=== PATIENT | female | born 1945 | race Caucasian/White ===

== ENCOUNTER 2017-03-04 13:06 | Emergency (ER) | payer OTHER, MEDICAID ==
[~2017-03-04 13:06] MED LIST: ALPR0.25 PO; GABA400C5 PO; HYDR-3133 PO; MELO7.5T27 PO; TRAM50TA PO
[2017-03-04 13:09] VITALS: BP 166/80; PULSE 85; RESP 22; TEMP 98; O2SAT 95
[2017-03-04 13:40] VITALS: O2SAT 98
[2017-03-04] MEDS ORDERED: PROPARACAINE HCL 0.5% OPHT SOLN 15 ML BTL LEFT EYE ONE (13:45)
[2017-03-04] MEDS ORDERED: ONDANSETRON HCL 4 MG/2 ML VIAL IV PUSH ONE (13:45)
[2017-03-04] MEDS ORDERED: MORPHINE SULFATE 4 MG/ML INJ IV PUSH ONE (13:45)
[2017-03-04 14:00] VITALS: BP 128/73; PULSE 64; RESP 16; O2SAT 98
[2017-03-04 14:10] LABS: AUTOMATED NEUTROPHIL # 5.4 TH/MM3 (1.8-7.7); BASOPHIL % 0.3 % (0.0-2.0); EOSINOPHIL % 0.4 % (0.0-4.0); HEMATOCRIT 43.9 % (35.0-46.0); HEMO FLAGS DIFF FINAL; LYMPH % 17.8 % (9.0-44.0); LYMPHOCYTE # 1.4 TH/MM3 (1.0-4.8); MEAN CELL VOLUME 90.7 FL (80.0-100.0); MEAN CORPUSCULAR HEMOGLOBIN 30.5 PG (27.0-34.0); MEAN CORPUSCULAR HGB CONC 33.6 % (32.0-36.0); MONO % 11.6 % (0.0-8.0); NEUT % 69.9 % (16.0-70.0); PLATELET COUNT 169 TH/MM3 (150-450); RED BLOOD COUNT 4.84 MIL/MM3 (4.00-5.30); RED CELL DISTRIBUTION WIDTH 14.6 % (11.6-17.2); WHITE BLOOD COUNT 7.8 TH/MM3 (4.0-11.0)
--- NOTE | 2017-03-04 14:14 | PD ---
HPI Chief Complaint: Headache Time Seen by Provider: 13:20 Travel History International Travel<30 days: No Contact w/Intl Traveler<30days: No Traveled to known affect area: No History of Present Illness HPI 71-year-old female that presents to the ED for evaluation of headache on the left side with eye pain. Per patient she's had this since yesterday. 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 She apparently had an infection that causes her to have this pain. She states that she does have a history of neck issues for which he follows with Dr. [place] has been taking tramadol with minimal relief. She follow with Dr. Hassan today who recommended that she comes here to get evaluated. She denies any blurry vision or double vision. No chest pain or shortness of breath. No numbness, tilling, weakness. Per patient the pain is constant on the left side of the face behind the eye. She denies any loss of patient states that yesterday her vision was "funny". She denies loss of vision but states that she couldn't really move her eyes. She doesn't have this anymore. She states that the pain is 8 out of 10. Mainly on the left side. Allergies to sulfa and cephalexin. No urinary or bowel movement issues. No abdominal pain. No chest pain. Denies taking any blood thinners. PFSH Past Medical History Arthritis: Yes Autoimmune Disease: No Bipolar Disorder: Yes Anxiety: Yes Depression: Yes Cancer: Yes (BREAST AND BLADDER) Cardiovascular Problems: Yes Diabetes: No Diminished Hearing: Yes (right ear deafness) Glaucoma: No Hepatitis: No Hiatal Hernia: No Hypertension: No Respiratory: Yes (COPD) Thyroid Disease: No Ectopic : Yes Past Surgical History Genitourinary Surgery: Yes (BLADDER SURGERY NODULE REMOVAL) Gynecologic Surgery: Yes (left breast lumpectomy due to cancer pt received chemo and radiation) Mastectomy: Yes (left) Oral Surgery: Yes (tonsillectomy) Pacemaker: No Tonsillectomy: Yes Other Surgery: Yes (LEFT BREAST LUMPECTOMY; SURGERY FOR ECTOPIC) Social History Alcohol Use: No Tobacco Use: Yes (1 PPD) Substance Use: Yes (PAST ETOH ABUSE) Allergies-Medications (Allergen,Severity, Reaction): Coded Allergies: Sulfa (Sulfonamide Antibiotics) (Verified Allergy, Severe, THROAT SWELLING , 03/04/17) cephalexin (Verified Allergy, Severe, THROAT SWELLING, 03/04/17) Reported Meds & Prescriptions Reported Meds & Active Scripts Active Lortab (Hydrocodone-Acetaminophen) 5-325 Mg Tab 1 Tab PO Q6H PRN Reported Tramadol (Tramadol HCl) 50 Mg Tab 50 Mg PO DAILY PRN Meloxicam 7.5 Mg Tab 7.5 Mg PO DAILY Gabapentin 400 Mg Cap 400 Cap PO QID Alprazolam 0.25 Mg Tab 0.25 Mg PO Q12HR PRN Review of Systems Except as stated in HPI: all other systems reviewed are Neg Physical Exam Narrative GENERAL: SKIN: Warm and dry. HEAD: Atraumatic. Normocephalic. EYES: Pupils equal and round 4 mm reactive to light and accommodation. No scleral icterus. No injection or drainage. EOM intact bilaterally. Peripheral vision intact. IOP is aware 14, 16, 15 on the left eye. Fluorescein stain revealed no sign of dendritic lesions or masses or operations. ENT: No nasal bleeding or discharge. Mucous membranes pink and moist. Tongue is midline. No uvula deviation. No obvious sinus tenderness. NECK: Trachea midline. No JVD. CARDIOVASCULAR: Regular rate and rhythm. No murmurs, S3, S4. RESPIRATORY: No accessory muscle use. Clear to auscultation. Breath sounds equal bilaterally. GASTROINTESTINAL: Abdomen soft, non-tender, nondistended. Hepatic and splenic margins not palpable. MUSCULOSKELETAL: Extremities without clubbing, cyanosis, or edema. No obvious deformities. Full range of motion of the upper and lower extremities bilaterally. 2+ pulses bilaterally. NEUROLOGICAL: Awake and alert. No obvious cranial nerve deficits. Motor grossly within normal limits. Five out of 5 muscle strength in the arms and legs. Normal speech. PSYCHIATRIC: Appropriate mood and affect; insight and judgment normal. Data Data Last Documented VS Vital Signs Date Time Temp Pulse Resp B/P (MAP) Pulse Ox O2 Delivery O2 Flow Rate FiO2 03/04/17 14:00 64 16 128/73 (91) 98 Room Air 03/04/17 13:09 98.0 Orders Orders Complete Blood Count With Diff (03/04/17 13:33) Basic Metabolic Panel (Bmp) (03/04/17 13:33) Prothrombin Time / Inr (Pt) (03/04/17 13:33) Act Partial Throm Time (Ptt) (03/04/17 13:33) Westergren Sedimentation Rate (03/04/17 13:33) Magnesium (Mg) (03/04/17 13:33) Thyroid Stimulating Hormone (03/04/17 13:33) Ct Brain W/O Iv Contrast(Rout) (03/04/17 13:33) Iv Access Insert/Monitor (03/04/17 13:33) Ecg Monitoring (03/04/17 13:33) Oximetry (03/04/17 13:33) Ondansetron Inj (Zofran Inj) (03/04/17 13:45) Morphine Inj (Morphine Inj) (03/04/17 13:45) Proparacaine 0.5% Opth Soln (Alcaine 0.5 (03/04/17 13:45) Ct Cerv Spine W/O Contrast (03/04/17 ) Ed Discharge Order (03/04/17 15:14) Labs Laboratory Tests Test 03/04/17 14:00 White Blood Count 7.8 TH/MM3 Red Blood Count 4.84 MIL/MM3 Hemoglobin 14.8 GM/DL Hematocrit 43.9 % Mean Corpuscular Volume 90.7 FL Mean Corpuscular Hemoglobin 30.5 PG Mean Corpuscular Hemoglobin Concent 33.6 % Red Cell Distribution Width 14.6 % Platelet Count 169 TH/MM3 Mean Platelet Volume 8.4 FL Neutrophils (%) (Auto) 69.9 % Lymphocytes (%) (Auto) 17.8 % Monocytes (%) (Auto) 11.6 % Eosinophils (%) (Auto) 0.4 % Basophils (%) (Auto) 0.3 % Neutrophils # (Auto) 5.4 TH/MM3 Lymphocytes # (Auto) 1.4 TH/MM3 Monocytes # (Auto) 0.9 TH/MM3 Eosinophils # (Auto) 0.0 TH/MM3 Basophils # (Auto) 0.0 TH/MM3 CBC Comment DIFF FINAL Differential Comment Erythrocyte Sedimentation Rate 1 mm/hr Prothrombin Time 10.9 SEC Prothromb Time International Ratio 1.0 RATIO Activated Partial Thromboplast Time 29.5 SEC Blood Urea Nitrogen 9 MG/DL Creatinine 0.70 MG/DL Random Glucose 125 MG/DL Calcium Level 8.7 MG/DL Magnesium Level 2.1 MG/DL Sodium Level 137 MEQ/L Potassium Level 3.5 MEQ/L Chloride Level 102 MEQ/L Carbon Dioxide Level 29.0 MEQ/L Anion Gap 6 MEQ/L Estimat Glomerular Filtration Rate 82 ML/MIN Thyroid Stimulating Hormone 3rd Gen 1.560 uIU/ML MDM Medical Decision Making Medical Screen Exam Complete: Yes Emergency Medical Condition: Yes Medical Record Reviewed: Yes Interpretation(s) CBC Diagram 03/04/17 14:00 BMP Diagram 03/04/17 14:00 Calcium Level 8.7, Magnesium Level 2.1 ESR WNL Last Impressions Head CT 03/04/17 1333 Signed Impressions: Service Date/Time: Saturday, March 04, 2017 14:34 - CONCLUSION: 1. No abnormality is identified to explain the clinical symptoms. There is no acute finding present. 2. Chronic findings include mild generalized atrophy and presumed old lacunae in the left basal ganglia. Gilson Suarez MD Cervical Spine CT 03/04/17 0000 Signed Impressions: Service Date/Time: Saturday, March 04, 2017 14:34 - CONCLUSION: 1. No acute cervical spine abnormality is identified. 2. There is as moderate to severe multilevel degenerative disc disease with osseous fusion between the C3 and C4 levels. No significant spinal canal stenosis is present. There are areas of mild to moderate neural foraminal narrowing. Gilson Suarez MD Differential Diagnosis Cephalgia versus headache versus neuralgia versus glaucoma versus bleed versus sinusitis versus acute on chronic pain versus neck pain versus temporal arteritis Narrative Course 71-year-old female that presents to the ED for evaluation of left-sided head pain. Patient was properly examined and was found to have signs and symptoms of unclear if this time. Labs and imaging were ordered. Patient was given pain medication IV. Physical exam was reassuring. Labs and imaging were essentially negative except for back neck. Patient states pain appears to be more radiculopathy from the neck. She had improvement of pain with pain medication.. No sign of temporal arteritis or stroke. No neural deficits. At this time recommendations for outpatient follow-up with PCP. She was given a short prescription for Lortab for pain. Told to use instead of the tramadol. See ED worsening symptoms. Case was discussed in my attending Dr. Jay who was made aware of all findings and agrees with plan. Diagnosis Primary Impression: Cephalgia Qualified Codes: R51 - Headache Additional Impression: Cervical radiculopathy Patient Instructions: General Instructions, Narcotic given in the ED Additional Instructions: Take medications as prescribed. Do not use tramadol if you are going to take the Lortab. Follow-up with PCP this week. See ED for any worsening symptoms. Do not drink or drive while taking pain medication. Apply ice or heat as needed for pain Med/Other Pt SpecificInfo: Prescription(s) given, Med Stopped Scripts Hydrocodone-Acetaminophen (Lortab) 5-325 Mg Tab 1 TAB PO Q6H Y for PAIN, #10 TAB 0 Refills Prov: Naveed Jay MD 03/04/17 Disposition: 01 DISCHARGE HOME Condition: Fahad Reyna Mar 04, 2017 14:14
[2017-03-04 14:21] LABS: APTT (PATIENT) 29.5 SEC (24.3-30.1); PROTHROMBIN TIME - PATIENT 10.9 SEC (9.8-11.6)
[2017-03-04 14:25] LABS: MAGNESIUM 2.1 MG/DL (1.5-2.5); POTASSIUM 3.5 MEQ/L (3.5-5.1)
--- NOTE | 2017-03-04 14:51 | RADRPT ---
EXAM DATE/TIME: 03/04/2017 14:34 [facility] COMPARISON: No previous studies available for comparison. INDICATIONS : Left eye pain since yesterday RADIATION DOSE: 28.83 CTDIvol (mGy) MEDICAL HISTORY : Carcinoma, breast. Chronic obstructive pulmonary disease. Carcinoma, bladder. SURGICAL HISTORY : Mastectomy, bilateral. ENCOUNTER: Initial ACUITY: 2 days PAIN SCALE: 9/10 LOCATION: Left cranial TECHNIQUE: Multiple contiguous axial images were obtained of the head. Using automated exposure control and adj ustment of the mA and/or kV according to patient size, radiation dose was kept as low as reasonably a chievable to obtain optimal diagnostic quality images. DICOM format image data is available electro nically for review and comparison. FINDINGS: CEREBRUM: There is generalized atrophy within the range of expected given the patient's age. Ventricles are nor mal in size. Well-defined ovoid low-density structure in the left basal ganglia measures 8 mm. No mi dline shift, mass lesion, hemorrhage or acute infarction. No extra-axial fluid collections are seen. POSTERIOR FOSSA: The cerebellum and brainstem are intact. The 4th ventricle is midline. The cerebellopontine angle i s unremarkable. EXTRACRANIAL: Visualized sinuses are clear. Globes demonstrate no abnormality. SKULL: The calvaria is intact. No evidence of skull fracture. CONCLUSION: 1. No abnormality is identified to explain the clinical symptoms. There is no acute finding present. 2. Chronic findings include mild generalized atrophy and presumed old lacunae in the left basal gangl ia. Gilson Suarez MD on March 04, 2017 at 14:47 Board Certified Radiologist. This report was verified electronically.
--- NOTE | 2017-03-04 15:05 | RADRPT ---
EXAM DATE/TIME: 03/04/2017 14:34 [facility] COMPARISON: No previous studies available for comparison. INDICATIONS : Left eye pain with blurred vision RADIATION DOSE: 18.78 CTDIvol (mGy) MEDICAL HISTORY : Chronic obstructive pulmonary disease. Carcinoma, breast. Carcinoma, bladder. SURGICAL HISTORY : Mastectomy, bilateral. ENCOUNTER: Initial ACUITY: 2 days PAIN SCALE: 0/10 LOCATION: neck TECHNIQUE: Volumetric scanning of the cervical spine was performed. Multiplanar reconstructions in the sagittal, coronal and oblique axial planes were performed. Using automated exposure control and adjustment o f the mA and/or kV according to patient size, radiation dose was kept as low as reasonably achievable to obtain optimal diagnostic quality images. DICOM format image data is available electronically f or review and comparison. FINDINGS: VERTEBRAE: Normal vertebral body height. There is osseous fusion between the C3 and C4 vertebral bodies and post erior elements. No fracture is identified. ALIGNMENT: There is 3 mm of anterolisthesis of C2 on C3. The craniocervical junction and C1-C2 level demonstrate no acute finding. C2-C3: There is grade one anterolisthesis at this level. Diffuse posterior disc osteophyte complex is presen t with small bilateral uncovertebral osteophytes. There is bilateral facet arthrosis. No spinal canal stenosis is present. There is mild neural foraminal narrowing bilaterally. C3-C4: Osseous fusion is present at this level. There is no disc herniation, canal stenosis, or neural hamilton inal stenosis identified. C4-C5: Decreased disc height with endplate osteophytes and posterior disc osteophyte complex and small uncov ertebral osteophytes. There is no spinal canal stenosis. Mild narrowing is present at the right neura l foramen. C5-C6: Severe decreased disc height with endplate sclerosis and osteophytes and diffuse posterior disc osteo phyte complex and small uncovertebral osteophytes. No spinal canal stenosis is present. There is mild neural foraminal narrowing bilaterally. C6-C7: Severe decreased disc height with endplate osteophytes anteriorly and small diffuse posterior disc os teophyte complex with uncovertebral osteophytes. No canal stenosis is identified. There is moderate r ight neural foraminal stenosis. C7-T1: There is mild decreased disc height with left facet arthrosis. No disc herniation, canal stenosis, or neural foraminal narrowing is present. There is decreased disc height at T1-T2 and T2-T3. At T2-T3 there is 2 mm of anterolisthesis and face t arthrosis. Lung apices demonstrate centrilobular emphysema. CONCLUSION: 1. No acute cervical spine abnormality is identified. 2. There is as moderate to severe multilevel degenerative disc disease with osseous fusion between th e C3 and C4 levels. No significant spinal canal stenosis is present. There are areas of mild to moder ate neural foraminal narrowing. Gilson Suarez MD on March 04, 2017 at 14:58 Board Certified Radiologist. This report was verified electronically.
[2017-03-04] MEDS ORDERED: HYDR-3533 PO (15:14)
[2017-03-04 15:51] VITALS: BP 122/74
== END 2017-03-04 15:54 | disposition home or self-care (01) ==
LOC: NEPC 13:06
DX: R51 Headache (principal); M54.12 Radiculopathy, cervical region; M50.31 Other cervical disc degeneration, high cervical region; M19.90 Unspecified osteoarthritis, unspecified site; F31.9 Bipolar disorder, unspecified; F41.9 Anxiety disorder, unspecified; J44.9 Chronic obstructive pulmonary disease, unspecified; F17.200 Nicotine dependence, unspecified, uncomplicated; Z79.899 Other long term (current) drug therapy
CPT/HCPCS: 70450; 72125; 80048; 83735; 84443; 85025; 85610; 85652; 85730; 96374; 96375; 99285; J2270; J2405

== ENCOUNTER 2017-05-15 10:23 | Inpatient (IN) | payer OTHER, MEDICAID, MEDICARE ==
[2017-05-15] MEDS: methylPREDNISolone SOD SUCC 125 MG/2 ML VIAL IV PUSH ×3 (10:45→21:16)
[2017-05-15] MEDS: RESP: ALBUTEROL 2.5 MG/IPRATROPIUM 0.5 MG NEB (SCH) INH ×3 (10:52→10:53)
[2017-05-15] MEDS: SODIUM CHLOR 0.9% 1000 ML INJ 1,000 ML IV (11:17)
[2017-05-15] MEDS: SODIUM CHLORIDE 0.9% FLUSH 10 ML FLUSH IVF (11:17)
[2017-05-15 11:30] LABS: AUTOMATED NEUTROPHIL # 5.6 TH/MM3 (1.8-7.7); BASOPHIL % 0.3 % (0.0-2.0); EOSINOPHIL # 0.1 TH/MM3 (0-0.4); EOSINOPHIL % 0.6 % (0.0-4.0); HEMATOCRIT 44.4 % (35.0-46.0); HEMO FLAGS DIFF FINAL; HEMOGLOBIN 14.7 GM/DL (11.6-15.3); LYMPH % 20.4 % (9.0-44.0); LYMPHOCYTE # 1.8 TH/MM3 (1.0-4.8); MEAN CORPUSCULAR HEMOGLOBIN 30.2 PG (27.0-34.0); MEAN CORPUSCULAR HGB CONC 33.2 % (32.0-36.0); MEAN PLATELET VOLUME 8.5 FL (7.0-11.0); MONO % 14.8 % (0.0-8.0); MONOCYTE # 1.3 TH/MM3 (0-0.9); NEUT % 63.9 % (16.0-70.0); PLATELET COUNT 204 TH/MM3 (150-450); RED BLOOD COUNT 4.88 MIL/MM3 (4.00-5.30); RED CELL DISTRIBUTION WIDTH 14.5 % (11.6-17.2); WHITE BLOOD COUNT 8.8 TH/MM3 (4.0-11.0)
[2017-05-15 11:57] LABS: ALBUMIN 3.4 GM/DL (3.4-5.0); ALT (GPT) 25 U/L (10-53); ANION GAP 5 MEQ/L (5-15); AST (GOT) 22 U/L (15-37); BICARBONATE 34.6 MEQ/L (21.0-32.0); BLOOD UREA NITROGEN 7 MG/DL (7-18); CALCIUM 8.7 MG/DL (8.5-10.1); CHLORIDE 101 MEQ/L (98-107); CREATININE 0.67 MG/DL (0.50-1.00); GLOMERULAR FILTRATION RATE 87 ML/MIN (>89); GLUCOSE,RANDOM 118 MG/DL (74-106); MAGNESIUM 2.3 MG/DL (1.5-2.5); POTASSIUM 3.4 MEQ/L (3.5-5.1); SODIUM (NA) 141 MEQ/L (136-145)
[2017-05-15 11:58] LABS: ALKALINE PHOSPHATASE 95 U/L (45-117); TOTAL BILIRUBIN ADULT 0.4 MG/DL (0.2-1.0); TOTAL PROTEIN 6.8 GM/DL (6.4-8.2)
[2017-05-15] MEDS ORDERED: RESP: ALBUTEROL 2.5 MG/3 ML NEB (PRN) INH (13:30)
[2017-05-15 13:54] LABS: BLOOD GAS BASE EXCESS 2.3 mmol/L (-2-2); BLOOD GAS CARBOXYHEMOGLOBIN 2.4 % (0-4); BLOOD GAS HCO3 27 mmol/L (22-26); BLOOD GAS METHEMOGLOBIN 0.7 % (0-2); BLOOD GAS O2 HGB SATURATION 87 % (90-100); BLOOD GAS OXYGEN CONTENT 16.9 Vol % (12.0-20.0); BLOOD GAS PCO2 48 mmHg (38-42); BLOOD GAS PO2 57 mmHG (61-120); BLOOD GAS TOTAL HGB 13.8 G/DL (12.0-16.0); TEMP CORR TO 98.6
[2017-05-15 13:55] LABS: CRITICAL VALUE YES; DRAW SITE RT RADIAL; LITER FLOW 2 L/M; NUMBER OF ARTERIAL PUNCTURES 1; OXYGEN DEVICE NASAL CANNULA; STAT YES
[2017-05-15] MEDS: POTASSIUM CHLORIDE 20 MEQ CONTROLLED RELEASE TAB PO (16:45)
[2017-05-15] MEDS: RESP: ALBUTEROL 2.5 MG/IPRATROPIUM 0.5 MG NEB (SCH) NEB ×2 (16:52→21:30)
[2017-05-15] MEDS ORDERED: AZITHROMYCIN INJ 500 MG in SODIUM CHLOR 0.9% 250 ML INJ 250 ML IV (18:30)
[2017-05-15] MEDS: AZITHROMYCIN 250 MG TAB PO (19:49)
[2017-05-15] MEDS: ENOXAPARIN SODIUM 40 MG/0.4 ML SYRINGE SQ (19:52)
[2017-05-15] MEDS: BUDESONIDE-FORMOTEROL 160/4.5 MCG INHALER INH (21:00)
[2017-05-15] MEDS: SODIUM CHLORIDE 0.9% FLUSH 10 ML FLUSH IV FLUSH (21:16)
[2017-05-15] MEDS: IOHEXOL 350 MG/ML 10 ML VIAL (for RAD DIAG) IVCONTRAST (22:20)
[2017-05-16] MEDS: SODIUM CHLORIDE 0.9% FLUSH 10 ML FLUSH IV FLUSH ×3 (03:26→20:32)
[2017-05-16] MEDS: methylPREDNISolone SOD SUCC 125 MG/2 ML VIAL IV PUSH ×3 (03:26→16:03)
[2017-05-16] MEDS: RESP: ALBUTEROL 2.5 MG/IPRATROPIUM 0.5 MG NEB (SCH) NEB ×3 (07:37→19:39)
[2017-05-16] MEDS: NICOTINE 14 MG/24 HR PATCH T-DERMAL (08:41)
[2017-05-16] MEDS: BUDESONIDE-FORMOTEROL 160/4.5 MCG INHALER INH ×2 (09:30→20:32)
[2017-05-16] MEDS: PNEUMOCOCCAL POLYVALENT INJ 25 MCG/0.5 ML SYR IM (16:05)
[2017-05-16] MEDS: INFLUENZA VIRUS VACCINE (QUADRIVALENT) 0.5 ML SYR IM (16:07)
[2017-05-16] MEDS: AZITHROMYCIN 250 MG TAB PO (18:25)
[2017-05-16] MEDS: ENOXAPARIN SODIUM 40 MG/0.4 ML SYRINGE SQ (18:25)
[2017-05-16] MEDS: methylPREDNISolone SOD SUCC 40 MG/1 ML VIAL IV PUSH (20:32)
[2017-05-16] MEDS: REMOVE OLD NICODERM (NICOTINE) PATCH T-DERMAL (20:33)
[2017-05-17] MEDS ORDERED: ACETAMINOPHEN 325 MG TAB PO
[2017-05-17] MEDS: IBUPROFEN 400 MG TAB PO (01:46)
[2017-05-17] MEDS: methylPREDNISolone SOD SUCC 40 MG/1 ML VIAL IV PUSH ×3 (01:49→19:47)
[2017-05-17] MEDS: RESP: ALBUTEROL 2.5 MG/IPRATROPIUM 0.5 MG NEB (SCH) NEB ×3 (08:42→20:11)
[2017-05-17] MEDS: NICOTINE 14 MG/24 HR PATCH T-DERMAL (09:33)
[2017-05-17] MEDS: BUDESONIDE-FORMOTEROL 160/4.5 MCG INHALER INH ×2 (09:34→19:47)
[2017-05-17] MEDS: SODIUM CHLORIDE 0.9% FLUSH 10 ML FLUSH IV FLUSH ×2 (09:34→19:47)
[2017-05-17 10:15] LABS: ANION GAP 7 MEQ/L (5-15); BLOOD UREA NITROGEN 16 MG/DL (7-18); CALCIUM 9.3 MG/DL (8.5-10.1); CHLORIDE 102 MEQ/L (98-107); CREATININE 0.76 MG/DL (0.50-1.00); GLOMERULAR FILTRATION RATE 75 ML/MIN (>89); GLUCOSE,RANDOM 104 MG/DL (74-106); POTASSIUM 4.3 MEQ/L (3.5-5.1); SODIUM (NA) 141 MEQ/L (136-145)
[2017-05-17] MEDS: LORazepam 2 MG/ML VIAL IV PUSH (14:40)
[2017-05-17] MEDS: RESP: ALBUTEROL 2.5 MG/IPRATROPIUM 0.5 MG NEB (PRN) NEB (16:15)
[2017-05-17] MEDS: ENOXAPARIN SODIUM 40 MG/0.4 ML SYRINGE SQ (18:30)
[2017-05-17] MEDS: AZITHROMYCIN 250 MG TAB PO (18:31)
[2017-05-17] MEDS: REMOVE OLD NICODERM (NICOTINE) PATCH T-DERMAL (19:50)
[2017-05-18] MEDS: NICOTINE 14 MG/24 HR PATCH T-DERMAL (09:11)
[2017-05-18] MEDS: BUDESONIDE-FORMOTEROL 160/4.5 MCG INHALER INH ×2 (09:11→20:54)
[2017-05-18] MEDS: methylPREDNISolone SOD SUCC 40 MG/1 ML VIAL IV PUSH (09:11)
[2017-05-18] MEDS: guaiFENesin E.R. 600 MG TAB PO ×2 (09:19→20:54)
[2017-05-18] MEDS: SODIUM CHLORIDE 0.9% FLUSH 10 ML FLUSH IV FLUSH ×2 (09:20→20:56)
[2017-05-18] MEDS: RESP: ALBUTEROL 2.5 MG/IPRATROPIUM 0.5 MG NEB (SCH) NEB ×2 (10:46→19:16)
[2017-05-18] MEDS: ENOXAPARIN SODIUM 40 MG/0.4 ML SYRINGE SQ (17:17)
[2017-05-18] MEDS: AZITHROMYCIN 250 MG TAB PO (17:17)
[2017-05-18] MEDS: predniSONE 20 MG TAB PO (20:54)
[2017-05-18] MEDS: REMOVE OLD NICODERM (NICOTINE) PATCH T-DERMAL (20:58)
[2017-05-19] MEDS: RESP: ALBUTEROL 2.5 MG/IPRATROPIUM 0.5 MG NEB (SCH) NEB ×2 (08:00→11:32)
[2017-05-19] MEDS: SODIUM CHLORIDE 0.9% FLUSH 10 ML FLUSH IV FLUSH ×2 (09:26→20:40)
[2017-05-19] MEDS: BUDESONIDE-FORMOTEROL 160/4.5 MCG INHALER INH ×2 (09:26→20:40)
[2017-05-19] MEDS: guaiFENesin E.R. 600 MG TAB PO ×2 (09:27→20:39)
[2017-05-19] MEDS: predniSONE 20 MG TAB PO ×2 (09:27→20:39)
[2017-05-19] MEDS: NICOTINE 14 MG/24 HR PATCH T-DERMAL (09:27)
[2017-05-19] MEDS: ENOXAPARIN SODIUM 40 MG/0.4 ML SYRINGE SQ (17:19)
[2017-05-19] MEDS: AZITHROMYCIN 250 MG TAB PO (17:19)
[2017-05-19] MEDS: REMOVE OLD NICODERM (NICOTINE) PATCH T-DERMAL (20:40)
[2017-05-20] MEDS: SODIUM CHLORIDE 0.9% FLUSH 10 ML FLUSH IV FLUSH ×2 (08:09→21:26)
[2017-05-20] MEDS: BUDESONIDE-FORMOTEROL 160/4.5 MCG INHALER INH ×2 (08:10→21:26)
[2017-05-20] MEDS: NICOTINE 14 MG/24 HR PATCH T-DERMAL (08:10)
[2017-05-20] MEDS: guaiFENesin E.R. 600 MG TAB PO ×2 (08:10→21:25)
[2017-05-20] MEDS: predniSONE 20 MG TAB PO (08:10)
[2017-05-20] MEDS: LORazepam 2 MG/ML VIAL IV PUSH (15:48)
[2017-05-20] MEDS: ENOXAPARIN SODIUM 40 MG/0.4 ML SYRINGE SQ (17:18)
[2017-05-20] MEDS: AZITHROMYCIN 250 MG TAB PO (17:18)
[2017-05-20] MEDS: predniSONE 10 MG TAB PO (21:25)
[2017-05-20] MEDS: REMOVE OLD NICODERM (NICOTINE) PATCH T-DERMAL (21:26)
[2017-05-21] MEDS: predniSONE 10 MG TAB PO (09:15)
[2017-05-21] MEDS: SODIUM CHLORIDE 0.9% FLUSH 10 ML FLUSH IV FLUSH (09:15)
[2017-05-21] MEDS: guaiFENesin E.R. 600 MG TAB PO (09:15)
[2017-05-21] MEDS: NICOTINE 14 MG/24 HR PATCH T-DERMAL (09:16)
[2017-05-21] MEDS: BUDESONIDE-FORMOTEROL 160/4.5 MCG INHALER INH (09:17)
== END 2017-05-21 12:34 | disposition home health service (06) | DRG 191 ==
LOC: NEPC 10:23 → N06A 05-16 22:15 → NEDA 13:29 → NEPGCP 15:50
PROC: 3E0F7GC Introduction of Other Therapeutic Substance into Respiratory Tract, Via Natural or Artificial Opening (ICD-10-PCS; principal; 2017-05-15)
DX: J44.1 Chronic obstructive pulmonary disease with (acute) exacerbation (principal); J96.11 Chronic respiratory failure with hypoxia; E87.6 Hypokalemia; F31.9 Bipolar disorder, unspecified; F17.210 Nicotine dependence, cigarettes, uncomplicated; Z85.3 Personal history of malignant neoplasm of breast; Z92.3 Personal history of irradiation; Z92.21 Personal history of antineoplastic chemotherapy; M19.90 Unspecified osteoarthritis, unspecified site; H91.93 Unspecified hearing loss, bilateral; Z85.51 Personal history of malignant neoplasm of bladder; F41.1 Generalized anxiety disorder; Z23 Encounter for immunization
CPT/HCPCS: 36600; 71045; 71260; 80048; 80053; 82805; 83735; 85025; 87804; 87804-59; 90686; 90732; 93005; 94150; 94618; 94640; 94664; 96360; 97110-GP; 97116-GP; 97162-GP; 97530-GP; 99285-25

== ENCOUNTER → 2017-09-30 | Outpatient (CLI) | payer OTHER ==
[~2017-09-30] MED LIST changes: +ALBU6.7H INH; +AZIT250T3 PO; +Budeson-Formot 160-4.5 Mcg Inh INH; +COMMODE 3-IN-11 MIS; -HYDR-3133 PO; +OXYGENDME NAS.CANULA; +PRED10 PO; +WALKER WHEELS/F1 MIS
== END ==
LOC: HRSP 13:11
PROVIDERS: ATTEND Specialist
DX: J44.9 Chronic obstructive pulmonary disease, unspecified (principal)
CPT/HCPCS: 94060; 94726; 94729